=== PATIENT | female | born 1965 | race African-American/Black ===

== ENCOUNTER → 2020-01-26 | Outpatient (CLI) | payer BC ==
[~2020-01-26] MED LIST: ACET-2708 PO; ALBU18HF2 IH; CHOL500063 PO; GINGER ROOT PO; MILK THISTLE PO; MULT-1116 PO; OLME1TAB27 PO; TRAM50TA3 PO; VITA1CAP19 PO; [UNRECOGNIZED DRUG - OTHER] PO; [UNRECOGNIZED DRUG - OTHER] PO; [UNRECOGNIZED DRUG - OTHER] PO; [UNRECOGNIZED DRUG - REMARK] PO
== END | disposition home or self-care (01) ==
LOC: LAB 11:35
PROVIDERS: ATTEND Obstetrics & Gynecology Obstetrics
DX: Z01.812 Encounter for preprocedural laboratory examination (principal); Z20.828 Contact with and (suspected) exposure to other viral communicable diseases
CPT/HCPCS: C9803; U0003

== ENCOUNTER → 2020-01-28 | Day surgery (SDC) | payer BC ==
[~2020-01-28] VITALS: Ht 170.2 cm; Wt 79.8 kg
[~2020-01-28] MED LIST changes: +ACETAMINOPHEN 650MG SUPP PR PRN; +CEFAZOLIN SODIUM 1000MG/VIAL ONE; +DEXAMETHASONE 4MG/ML 1ML VIAL ONE; +EPHEDRINE SULFATE 50MG/ML VIAL ONE; +FENTANYL CITRATE/PF 50MCG/ML 2ML VIAL ONE; +KETOROLAC 30MG/ML VIAL IV NR; +LACTATED RINGERS 1,000 ML IV SCH; +LIDOCAINE HCL/PF 1% 10 MG/ML 5ML VIAL ONE; +METOCLOPRAMIDE HCL 10MG/2ML VIAL ONE; +MIDAZOLAM HCL 2 MG/2 ML VIAL ONE; +ONDANSETRON HCL 4MG/2ML INJ ONE; +PROPOFOL 200MG/20ML VIAL IV ONE; +ROCURONIUM BROMIDE 10MG/ML VIAL 5ML IV ONE; +SODIUM CHLORIDE 0.9% 10ML VIAL ONE; +SUCCINYLCHOLINE CHLORIDE 200MG/10ML IV ONE; +TERBUTALINE SULFATE 1MG/ML VIAL ONE
[2020-01-28 06:58] LABS: BASOPHILS % 1.2 % (0.0-2.0); EOSINOPHILS % 1.9 % (0.0-5.0); HEMATOCRIT. 39.5 % (36.0-48.0); HEMOGLOBIN. 13.2 g/dL (12.0-16.0); LYMPHOCYTES % 26.6 % (20.0-50.0); MEAN CORPUSCULAR HEMOGLOBIN 30.7 pg (28.0-32.0); MEAN PLATELET VOLUME 9.3 fl (7.4-10.4); MONOCYTES % 6.9 % (2.0-8.0); NEUTROPHILS % 63.4 % (40.0-76.0); PLATELET 333 x1000/uL (130-400); RED CELL DISTRIBUTION WIDTH 13.7 % (11.6-14.6)
[2020-01-28 07:03] LABS: CLARITY URINE CLEAR (CLEAR); COLOR URINE YELLOW (YELLOW); KETONES URINE NEGATIVE (NEGATIVE); LEUKOCYTE ESTERASE URINE NEGATIVE (NEGATIVE); NITRITE URINE NEGATIVE (NEGATIVE); OCCULT BLOOD URINE NEGATIVE (NEGATIVE); PROTEIN URINE NEGATIVE (NEGATIVE); SPECIFIC GRAVITY URINE 1.027 (1.005-1.030)
[2020-01-28 07:07] LABS: UCG SCREEN NEGATIVE
[2020-01-28 07:24] LABS: CHLORIDE 111 mEq/L (98-107); INR 1.1; PARTIAL THROMBOPLASTIN TIME 26.8 sec (23.4-31.0); PROTHROMBIN TIME 11.2 sec (9.6-11.0)
[2020-01-28] MEDS: HYDROMORPHONE HCL/PF 2MG/ML CPJ IV PRN ×2 (09:59→10:15)
[2020-01-28 10:51] VITALS: BP 121/69
== END | disposition home or self-care (01) ==
LOC: OR 06:05
PROVIDERS: ATTEND Obstetrics & Gynecology Obstetrics
DX: N95.0 Postmenopausal bleeding (principal); N84.0 Polyp of corpus uteri; D25.9 Leiomyoma of uterus, unspecified; I10 Essential (primary) hypertension; J45.909 Unspecified asthma, uncomplicated; M19.90 Unspecified osteoarthritis, unspecified site; Z87.891 Personal history of nicotine dependence; Z79.899 Other long term (current) drug therapy; Z98.890 Other specified postprocedural states
CPT/HCPCS: 36415; 58558; 80048; 81003; 81025; 85025; 85610; 85730; 88305; J0330; J0690; J1100; J1170; J1885; J2250; J2405; J2704; J2765; J3010; J3105; J3490